=== PATIENT | female | born 1985 | race Caucasian/White ===

== ENCOUNTER 2016-10-24 22:12 | Emergency (ER) | payer MEDICARE, OTHER ==
[~2016-10-24] VITALS: Ht 180.3 cm; Wt 55.0 kg
[2016-10-24 22:14] VITALS: BP 152/72; PULSE 78; RESP 16; TEMP 97.9; O2SAT 100
[2016-10-25] MEDS ORDERED: FENT75DI T-DERMAL (01:42)
[2016-10-25] MEDS ORDERED: DILA4TAB2 PO (01:42)
[2016-10-25 02:22] LABS: BASOPHIL % 0.5 % (0.0-2.0); EOSINOPHIL # 0.1 TH/MM3 (0-0.4); EOSINOPHIL % 2.1 % (0.0-4.0); HEMATOCRIT 28.8 % (35.0-46.0); HEMO FLAGS DIFF FINAL; LYMPH % 24.8 % (9.0-44.0); LYMPHOCYTE # 1.1 TH/MM3 (1.0-4.8); MEAN CELL VOLUME 98.9 FL (80.0-100.0); MEAN CORPUSCULAR HEMOGLOBIN 34.7 PG (27.0-34.0); MEAN CORPUSCULAR HGB CONC 35.1 % (32.0-36.0); MONO % 7.8 % (0.0-8.0); NEUT % 64.8 % (16.0-70.0); PLATELET COUNT 195 TH/MM3 (150-450); RED BLOOD COUNT 2.92 MIL/MM3 (4.00-5.30); RED CELL DISTRIBUTION WIDTH 12.1 % (11.6-17.2); WHITE BLOOD COUNT 4.6 TH/MM3 (4.0-11.0)
[2016-10-25 02:37] LABS: BICARBONATE 32.3 MEQ/L (21.0-32.0); POTASSIUM 3.9 MEQ/L (3.5-5.1)
[2016-10-25] MEDS ORDERED: IOHEXOL 350 MG/ML 10 ML VIAL (for RAD DIAG) IV ONE (03:08)
[2016-10-25 04:45] VITALS: BP 119/58; PULSE 56; RESP 20; O2SAT 99
[2016-10-25] MEDS ORDERED: HYDROmorphone HCL PF 1 MG/ML VIAL IV PUSH ONE ×2 (05:00→05:45)
--- NOTE | 2016-10-25 05:11 | RADRPT ---
EXAM DATE/TIME: 10/25/2016 03:07 [facility] COMPARISON: No previous studies available for comparison. INDICATIONS : Left lower extremity edema for three days IV CONTRAST: 100 cc Omnipaque 350 (iohexol) IV RADIATION DOSE: 7.37 CTDIvol (mGy) MEDICAL HISTORY : Cervical cancer. SURGICAL HISTORY : Left kidney stent. ENCOUNTER: Initial ACUITY: 4 - 6 days PAIN SCALE: 4/10 LOCATION: Left lower extremity TECHNIQUE: Volumetric scanning was performed using a multi-row detector CT scanner. The data was post processed with a variety of visualization algorithms including full volume maximum intensity projection, multi -planar sliding thin slab reformation, curved planar reformation, and surface rendering techniques. Using automated exposure control and adjustment of the mA and/or kV according to patient size, radiat ion dose was kept as low as reasonably achievable to obtain optimal diagnostic quality images. FINDINGS: There is moderate left-sided hydronephrosis and a left ureteral stent is present looped proximally in the left kidney and distally in the bladder. There is a necrotic appearing left adnexal mass measuri ng about 4.8 cm in diameter. There is also necrotic appearing mass in the central pelvis measuring 4. 5 cm in diameter. Mildly enlarged left inguinal lymph nodes are present. There are subcutaneous edema tous changes in the left hemipelvis and extending into the left thigh to the level of the knee. Incid ental note made of pectus excavatum. Patient reportedly has a history of advanced cervical cancer. ABDOMINAL AORTA: The lumen is smooth without significant narrowing or aneurysmal dilation. The proximal celiac and desai perior mesenteric arteries are patent and normal in diameter. There are solitary renal arteries bila terally without gross abnormality. BIFURCATION: Normal. RIGHT PELVIS: The right common iliac, internal iliac, and external iliac vessels are patent without luminal irregul arity. LEFT PELVIS: The left common iliac, internal iliac, and external iliac vessels are patent and without luminal irre gularity. RIGHT THIGH: The superficial femoral and profunda vessels are patent without luminal irregularity. LEFT THIGH: The superficial femoral and profunda vessels are patent without luminal irregularity. RIGHT KNEE: The distal femoral and popliteal arteries are patent without luminal irregularity. LEFT KNEE: The distal femoral and popliteal arteries are patent without luminal irregularity. RIGHT LEG: The trifurcation is intact. LEFT LEG: The trifurcation is intact. CONCLUSION: 1. Negative CTA. 2. Necrotic pelvic masses with reported history of advanced cervical cancer. Left inguinal adenopathy . Left ureteral stent present with moderate left hydronephrosis. Edematous changes present in the sof t tissues of the left hemipelvis and left thigh. Onesimo Willson MD on October 25, 2016 at 5:03 Board Certified Radiologist. This report was verified electronically.
[2016-10-25 06:03] VITALS: RESP 20
--- NOTE | 2016-10-25 06:35 | PD ---
HPI Chief Complaint: Edema Time Seen by Provider: 01:51 Travel History International Travel<30 days: No Contact w/Intl Traveler<30days: No Traveled to known affect area: No History of Present Illness HPI Patient is a 31 year old female who comes in complaining of swelling to her left leg. She says it started a few days ago and has gotten worse. She has history of cervical cancer and recently came here from [place]. She says her leg feels funny when she walks on it, but she has not really had pain to the leg. She denies any chest pain or SOB. PFSH Past Medical History Cancer: Yes (terminal cervical Dx 2011) Chemotherapy: No (CERVICAL CA) Diminished Hearing: No Tetanus Vaccination: > 5 Years ?: Not : 3 Para: 1 Miscarriage: 2 Past Surgical History Other Surgery: Yes (stent left kidney) Social History Alcohol Use: No Tobacco Use: Yes (1/4 pack day) Substance Use: No Allergies-Medications (Allergen,Severity, Reaction): Coded Allergies: Phenergan (Verified Allergy, Unknown, 10/24/16) Vicodin (Verified Allergy, Unknown, 10/24/16) Reported Meds & Prescriptions Reported Meds & Active Scripts Active Reported Dilaudid (Hydromorphone HCl) 4 Mg Tab 4 Mg PO Q4H PRN Fentanyl Patch 72 HR (Fentanyl) 75 Mcg/Hr Patch 75 Mcg T-DERMAL Q72H Remove old patch when new one placed. Review of Systems Except as stated in HPI: all other systems reviewed are Neg General / Constitutional: No: Fever, Chills HENT: No: Headaches, Lightheadedness Cardiovascular: No: Chest Pain or Discomfort Respiratory: No: Shortness of Breath Gastrointestinal: No: Nausea, Vomiting Musculoskeletal: Positive: Edema, No: Pain Skin: No Rash, No Change in Pigmentation Neurologic: No: Weakness, Dizziness Physical Exam Narrative GENERAL: Awake and alert, in no acute distress. SKIN: Focused skin assessment warm/dry. HEAD: Atraumatic. Normocephalic. EYES: Pupils equal and round. No scleral icterus. ENT: Mucous membranes pink and moist. NECK: Trachea midline. No JVD. CARDIOVASCULAR: Regular rate and rhythm. No murmur appreciated. RESPIRATORY: No accessory muscle use. Clear to auscultation. Breath sounds equal bilaterally. GASTROINTESTINAL: Abdomen soft, non-tender, nondistended. MUSCULOSKELETAL: No obvious deformities. No clubbing. No cyanosis. 2+ edema of left leg. Pedal pulses intact. No calf tenderness. NEUROLOGICAL: Awake and alert. No obvious cranial nerve deficits. Motor grossly within normal limits. Normal speech. PSYCHIATRIC: Appropriate mood and affect; insight and judgment normal. Data Data Last Documented VS Vital Signs Date Time Temp Pulse Resp B/P Pulse Ox O2 Delivery O2 Flow Rate FiO2 10/25/16 06:03 20 10/25/16 04:45 56 119/58 99 10/24/16 22:14 97.9 Orders Complete Blood Count With Diff (10/25/16 01:58) Basic Metabolic Panel (Bmp) (10/25/16 01:58) Cta Runoff W Iv Contrast W 3d (10/25/16 ) Iohexol 350 Inj (Omnipaque 350 Inj) (10/25/16 03:08) Us Leg Venous Doppler (10/25/16 ) Hydromorphone Pf Inj (Dilaudid Pf Inj) (10/25/16 05:00) Hydromorphone Pf Inj (Dilaudid Pf Inj) (10/25/16 05:45) Labs Laboratory Tests Test 10/25/16 02:05 White Blood Count 4.6 TH/MM3 Red Blood Count 2.92 MIL/MM3 Hemoglobin 10.1 GM/DL Hematocrit 28.8 % Mean Corpuscular Volume 98.9 FL Mean Corpuscular Hemoglobin 34.7 PG Mean Corpuscular Hemoglobin 35.1 % Concent Red Cell Distribution Width 12.1 % Platelet Count 195 TH/MM3 Mean Platelet Volume 7.8 FL Neutrophils (%) (Auto) 64.8 % Lymphocytes (%) (Auto) 24.8 % Monocytes (%) (Auto) 7.8 % Eosinophils (%) (Auto) 2.1 % Basophils (%) (Auto) 0.5 % Neutrophils # (Auto) 3.0 TH/MM3 Lymphocytes # (Auto) 1.1 TH/MM3 Monocytes # (Auto) 0.4 TH/MM3 Eosinophils # (Auto) 0.1 TH/MM3 Basophils # (Auto) 0.0 TH/MM3 CBC Comment DIFF FINAL Differential Comment Sodium Level 143 MEQ/L Potassium Level 3.9 MEQ/L Chloride Level 106 MEQ/L Carbon Dioxide Level 32.3 MEQ/L Anion Gap 5 MEQ/L Blood Urea Nitrogen 10 MG/DL Creatinine 0.93 MG/DL Estimat Glomerular Filtration 70 ML/MIN Rate Random Glucose 85 MG/DL Calcium Level 8.6 MG/DL MDM Medical Decision Making Medical Screen Exam Complete: Yes Emergency Medical Condition: Yes Differential Diagnosis DVT versus arterial occlusion versus peripheral edema Narrative Course Patient is a 31-year-old female comes in complaining of swelling of her left leg. Exam shows large swelling of the left leg. IV established, labs sent. Labs show no acute abnormalities. CTA runoff of the legs show a tumor but no compression of the blood vessels. Patient started to complain of pain. Given Dilaudid, which she takes at home. Ultrasound to rule out DVT ordered of the left leg. Patient signed out to oncoming physician to follow-up ultrasound and disposition appropriately. Claudia Huffman MD Oct 25, 2016 06:35
--- NOTE | 2016-10-25 07:33 | RADRPT ---
EXAM DATE/TIME: 10/25/2016 06:49 [facility] COMPARISON: No previous studies available for comparison. INDICATIONS : Swelling in left leg. MEDICAL HISTORY : Terminal cervical cancer. Chemotherapy. SURGICAL HISTORY : Left renal stent. ENCOUNTER: Initial ACUITY: 1 day PAIN SCORE: 4/10 LOCATION: Left leg. TECHNIQUE: Venous ultrasound of the leg was performed from the inguinal ligament to the proximal calf. Real-corie e, color Doppler and spectral tracing, compression and augmentation techniques were used. FINDINGS: There is normal compressibility of the deep venous system from the inguinal region to the proximal ca lf. No echogenic clot is seen in the lumen of the common femoral, femoral, popliteal, and posterior tibial veins. There is a normal response of the venous system to proximal and distal augmentation an d respiration. There is retrograde flow seen within the left femoral vein. There are some lymph node s in left groin measuring up to 2.5 cm. CONCLUSION: 1. No deep venous thrombosis in the left leg. 2. Retrograde flow in the left femoral vein of uncertain etiology. 3. Mildly prominent lymph nodes in left groin the largest measuring 2.5 cm. Roosevelt Ceja MD on October 25, 2016 at 7:30 Board Certified Radiologist. This report was verified electronically.
[2016-10-25] MEDS ORDERED: HYDROmorphone HCL 4 MG TAB PO ONE (08:30)
--- NOTE | 2016-10-25 08:36 | PD ---
Physical Exam Date Seen by Provider: Oct 25, 2016 Time Seen by Provider: 08:36 Narrative 31-year-old female came to the emergency room with history of left leg pain and swelling for past 2-3 days. She was seen by the previous ER physician who had ordered CAT scan, ultrasound of the leg and blood test. Patient has history of cervical cancer and she is getting treatment in [place] for that. She is here on vacation. She is returning back to [place] on Sunday. She was medicated for pain since she's been here. The sign out was to follow-up on the ultrasound report. The ultrasound report came back and does not show a DVT. I went back to let the patient know about the ultrasound report. She seemed unhappy by the report. She was complaining of leg pain and said that she usually takes 4 mg of Dilaudid every 2-4 hours as needed. I let her know that I would be happy to order that but that pill has to come from our pharmacy which may take a little longer. She did not want to wait and said she had pills of her own that she could take and would rather leave. Patient has been discharged at this point. Data Data Last Documented VS Vital Signs Date Time Temp Pulse Resp B/P Pulse Ox O2 Delivery O2 Flow Rate FiO2 10/25/16 06:03 20 10/25/16 04:45 56 119/58 99 10/24/16 22:14 97.9 Orders Complete Blood Count With Diff (10/25/16 01:58) Basic Metabolic Panel (Bmp) (10/25/16 01:58) Cta Runoff W Iv Contrast W 3d (10/25/16 ) Iohexol 350 Inj (Omnipaque 350 Inj) (10/25/16 03:08) Us Leg Venous Doppler (10/25/16 ) Hydromorphone Pf Inj (Dilaudid Pf Inj) (10/25/16 05:00) Hydromorphone Pf Inj (Dilaudid Pf Inj) (10/25/16 05:45) Hydromorphone (Dilaudid) (10/25/16 08:30) Labs Laboratory Tests Test 10/25/16 02:05 White Blood Count 4.6 TH/MM3 Red Blood Count 2.92 MIL/MM3 Hemoglobin 10.1 GM/DL Hematocrit 28.8 % Mean Corpuscular Volume 98.9 FL Mean Corpuscular Hemoglobin 34.7 PG Mean Corpuscular Hemoglobin 35.1 % Concent Red Cell Distribution Width 12.1 % Platelet Count 195 TH/MM3 Mean Platelet Volume 7.8 FL Neutrophils (%) (Auto) 64.8 % Lymphocytes (%) (Auto) 24.8 % Monocytes (%) (Auto) 7.8 % Eosinophils (%) (Auto) 2.1 % Basophils (%) (Auto) 0.5 % Neutrophils # (Auto) 3.0 TH/MM3 Lymphocytes # (Auto) 1.1 TH/MM3 Monocytes # (Auto) 0.4 TH/MM3 Eosinophils # (Auto) 0.1 TH/MM3 Basophils # (Auto) 0.0 TH/MM3 CBC Comment DIFF FINAL Differential Comment Sodium Level 143 MEQ/L Potassium Level 3.9 MEQ/L Chloride Level 106 MEQ/L Carbon Dioxide Level 32.3 MEQ/L Anion Gap 5 MEQ/L Blood Urea Nitrogen 10 MG/DL Creatinine 0.93 MG/DL Estimat Glomerular Filtration 70 ML/MIN Rate Random Glucose 85 MG/DL Calcium Level 8.6 MG/DL MDM Supervised Visit with SHADI: No Diagnosis Primary Impression: Leg edema, left Additional Impressions: Leg pain Qualified Code: M79.605 - Pain of left lower extremity Lymphadenopathy Referrals: Primary Care Physician 1 week Additional Instruction: Please return to the ER if the condition worsens or any other new concerns. Otherwise follow-up with your primary care. If the swelling worsens you might require a repeat ultrasound to rule out DVT. We will give you a copy of your CAT scan and ultrasound report that was done he appeared. Keep the leg elevated and wear compression stockings. Med/Other Pt SpecificInfo: No Change to Meds Disposition: 01 DISCHARGE HOME Condition: Stable Cornell Hammond MD Oct 25, 2016 08:36
== END 2016-10-25 08:46 | disposition home or self-care (01) ==
LOC: NEPC 22:12
DX: R60.0 Localized edema (principal); M79.662 Pain in left lower leg; R59.9 Enlarged lymph nodes, unspecified; F17.210 Nicotine dependence, cigarettes, uncomplicated
CPT/HCPCS: 75635; 80048; 85025; 93971; 96374; 96376; 99284; J1170; Q9967